=== PATIENT | male | born 1960 | race African-American/Black ===

== ENCOUNTER 2017-09-17 12:37 | Inpatient (IN) | payer OTHER ==
[2017-09-17 14:35] VITALS: BMI 19.3
--- NOTE | 2017-09-17 19:57 | HP ---
Admission [facility] Chief Complaint: I am here for rehab Allergies/Adverse Reactions: Allergies Allergy/AdvReac Type Severity Reaction Status Date / Time shellfish derived Allergy Severe Swelling Verified 09/17/17 16:56 History of Present Illness: 57 yo male with cocaine, heroin (paranasal) and nicotine dependence is here seeking detox. [facility] attends at [facility] [address] [place] [address] tel , currently on methadone 50 mg, last mediated yesterday. PMHX: scoliosis, OA, neuropathy, HTN ( on meds), DMII, anxiety, depression, bipolar and schizophrenia. Denies suicidal / homicidal ideation or suicide attempts.Longest period of sobriety 3.5 years. Reports has attended multiple rehabs before, last rehab [address] [facility]. Exam Limitations: No Limitations - Ebola screening Have you been sick,other than usual withdrawal symptoms: No - Review of Systems Constitutional: Chills, Loss of Appetite, Changes in sleep, Unintentional Wgt. Loss (19 lbs over the past 90 days) EENT: reports: No Symptoms Reported Respiratory: reports: No Symptoms reported Cardiac: reports: No Symptoms Reported GI: reports: Poor Appetite, Poor Fluid Intake : reports: No Symptoms Reported Musculoskeletal: reports: Joint Pain Integumentary: reports: No Symptoms Reported Neuro: reports: Other (diabetic neuropathy left leg) Endocrine: reports: Increased Thirst Hematology: reports: No Symptoms Reported Psychiatric: reports: Orientated x3, Depressed Other Systems: Reviewed and Negative Patient History - Patient Medical History Hx Anemia: No Hx Asthma: No Hx Chronic Obstructive Pulmonary Disease (COPD): No Hx Cancer: No Hx Congestive Heart Failure: No Hx Hypertension: Yes (Norvasc 5 mg QD ) Hx Hypercholesterolemia: No Hx Pacemaker: No HX Cerebrovascular Accident: No Hx Seizures: No Hx Dementia: No Hx Diabetes: Yes (DM II on metformin ) Hx Gastrointestinal Disorders: No Hx Liver Disease: No Hx Genitourinary Disorders: No Hx Sexually Transmitted Disorders: Yes (Gonorrhea ) Hx Renal Disease (ESRD): No Hx Thyroid Disease: No Hx Human Immunodeficiency Virus (HIV): No (last tested 2016) Hx Hepatitis C: No Hx Depression: Yes Hx Suicide Attempt: No Hx Bipolar Disorder: Yes Hx Schizophrenia: Yes - Patient Surgical History Past Surgical History: No Hx Neurologic Surgery: No Hx Cataract Extraction: No Hx Cardiac Surgery: No Hx Lung Surgery: No Hx Breast Surgery: No Hx Breast Biopsy: No Hx Abdominal Surgery: No Hx Appendectomy: No Hx Cholecystectomy: No Hx Genitourinary Surgery: No Hx Section: No Hx Orthopedic Surgery: No Hx Hysterectomy: No Anesthesia Reaction: No - PPD History Previous Implant?: No Documented Results: Negative w/o proof PPD to be Administered?: Yes - Reproductive History Patient is a Female of Child Bearing Age (11 -55 yrs old): No - Smoking Cessation Smoking history: Current every day smoker Have you smoked in the past 12 months: Yes Aproximately how many cigarettes per day: 8 Hx Chewing Tobacco Use: No Initiated information on smoking cessation: Yes 'Breaking Loose' booklet given: 09/17/17 - Substance & Tx. History Hx Alcohol Use: No Hx Substance Use: Yes Substance Use Type: Cocaine, Heroin Hx Substance Use Treatment: Yes (last rehab [address] [facility].) - Substances Abused heroin Route: Inhalation Frequency: Daily Amount used: 1 bag Age of first use: 16 Date of Last Use: 09/17/17 Cocaine Route: Inhalation Frequency: Daily Amount used: $10 Age of first use: 18 Date of Last Use: 09/16/17 Family Disease History - Family Disease History Family Disease History: Other: Father (, unknown ), Mother (, unknown ) Admission Physical Exam S - Vital Signs Vital Signs: Vital Signs - 24 hr 09/17/17 14:34 Temperature 97.2 F L Pulse Rate 93 H Respiratory 18 Rate Blood Pressure 141/88 - Physical General Appearance: Yes: Appropriately Dressed, Thin, Anxious HEENTM: Yes: EOMI, Hearing grossly Normal, Normal ENT Inspection, Normocephalic , Normal Voice, ILEANA, Pharynx Normal, Tm's normal Respiratory: Yes: Chest Non-Tender, Normal Breath Sounds, No Respiratory Distress, No Accessory Muscle Use Neck: Yes: No masses,lesions,Nodules, Trachea in good position Breast: Yes: Breast Exam Deferred Cardiology: Yes: Regular Rhythm, Regular Rate Genitourinary: Yes: Within Normal Limits Back: Yes: Normal Inspection Musculoskeletal: Yes: full range of Motion, Gait Steady, Back pain, Other ( ambulates with cane, scoliosis) Extremities: Yes: Normal Capillary Refill, Normal Inspection, Normal Range of Motion, Non-Tender Neurological: Yes: tugboat mate II-XII NML intact, Fully Oriented, Alert, Motor Strength 5/5, Depressed Affect Integumentary: Yes: Normal Color, Dry, Warm Lymphatic: Yes: Within Normal Limits - Diagnostic (1) Methadone maintenance therapy patient Current Visit: Yes Status: Acute Comment: on 50 mg dose pending verification (2) Hypertension Current Visit: Yes Status: Chronic Qualifiers: Hypertension type: essential hypertension Qualified Code(s): I10 - Essential (primary) hypertension (3) Cocaine dependence Current Visit: Yes Status: Acute Qualifiers: Substance use status: uncomplicated Qualified Code(s): F14.20 - Cocaine dependence, uncomplicated (4) Nicotine dependence Current Visit: Yes Status: Acute Qualifiers: Nicotine product type: cigarettes (5) Use of cane as ambulatory aid Current Visit: Yes Status: Chronic (6) Diabetes mellitus type II, non insulin dependent Current Visit: Yes Status: Chronic (7) Scoliosis Current Visit: Yes Status: Chronic Qualifiers: Scoliosis type: unspecified scoliosis Spinal region: unspecified Qualified Code(s): M41.9 - Scoliosis, unspecified (8) Back pain Current Visit: Yes Status: Chronic Qualifiers: Chronicity: chronic Back pain laterality: right Sciatica presence: without sciatica (9) Neuropathy Current Visit: Yes Status: Chronic (10) Weight loss Current Visit: Yes Status: Acute [facility] Breath Alcohol Content Breath Alcohol Content: 0 Urine Drug Screen - Results Drug Screen Negative: No Urine Drug Screen Results: JASON-Cocaine, OPI-Opiates, MTD-Methadone
[2017-09-17] MEDS ORDERED: ACETAMINOPHEN 325 MG TABLET (FP) PO PRN (20:04)
[2017-09-17] MEDS ORDERED: IBUPROFEN 400 MG TABLET (FP) PO PRN (20:04)
[2017-09-17] MEDS ORDERED: MAGNESIUM HYDROX 2400MG/30ML ORAL SUSPENSION 30 ML CUP PO PRN (20:04)
[2017-09-17] MEDS ORDERED: MAG HYDROX/AL HYDROX/SIMETH 30 ML UNIT-DOSE CUP PO PRN (20:04)
[2017-09-17] MEDS ORDERED: MAGNESIUM CITRATE 300 ML BOTTLE PO PRN (20:04)
[2017-09-17] MEDS ORDERED: LOPERAMIDE HCL 2 MG CAPSULE PO PRN (20:04)
[2017-09-17] MEDS ORDERED: guaiFENesin/D-METHORPHAN HB 10 ML UNIT-DOSE CUPS PO PRN (20:04)
[2017-09-17] MEDS ORDERED: P-EPHED 60MG/TRIPROLIDI 2.5MG TABLET PO PRN (20:04)
[2017-09-17] MEDS ORDERED: MENTHOL/PHENOL 1 EACH UD MM PRN (20:04)
[2017-09-17] MEDS ORDERED: NICOTINE POLACRILEX 2 MG GUM BUC PRN (20:07)
[2017-09-17] MEDS ORDERED: MELATONIN 5 MG TABLETS PO PRN (22:00)
[2017-09-17] MEDS: LIDOCAINE 5% TOPICAL PATCH TP SCH (22:01)
[2017-09-17] MEDS: THIAMINE HCL 100 MG TABLET (FP) PO SCH (23:02)
[2017-09-17] MEDS: metFORMIN HCL 500 MG TABLET (FP) PO SCH (23:02)
[2017-09-17] MEDS: LIDOCAINE PATCH REMOVAL MC SCH (23:02)
[2017-09-17] MEDS: CHOLECALCIFEROL (VITAMIN D3) 1,000 UNIT TABLET (FP) PO SCH (23:12)
[2017-09-17] MEDS ORDERED: TUBERCULIN PPD 5 TU/0.1ML VIAL ID ONE ×2 (23:17→23:19)
[2017-09-18] MEDS: metFORMIN HCL 500 MG TABLET (FP) PO SCH ×2 (06:23→17:35)
[2017-09-18] MEDS ORDERED: METHADONE HCL 40 MG DISPERSABLE TABLET PO SCH (09:45)
[2017-09-18] MEDS: LISINOPRIL 20 MG TABLET (FP) PO SCH (09:57)
[2017-09-18] MEDS: PRENATAL VITAMINS W/ FOLIC ACID TABLET (FP) PO SCH (09:57)
[2017-09-18] MEDS: ASPIRIN 81 MG CHEWABLE TABLETS PO SCH (09:57)
[2017-09-18] MEDS: amLODIPine BESYLATE 5 MG TABLET (FP) PO SCH (09:57)
[2017-09-18] MEDS: LIDOCAINE 5% TOPICAL PATCH TP SCH (09:57)
[2017-09-18] MEDS: CHOLECALCIFEROL (VITAMIN D3) 1,000 UNIT TABLET (FP) PO SCH (09:59)
[2017-09-18] MEDS: NICOTINE 14 MG/24 HOURS TOPICAL PATCH TD SCH (10:02)
[2017-09-18 10:28] LABS: HEMATOCRIT 35.1 % (35.4-49); HEMOGLOBIN 11.7 GM/dL (11.7-16.9); MCH 32.1 pg (25.7-33.7); MCHC 33.4 g/dl (32.0-35.9); MEAN CELL VOLUME 95.9 fl (80-96); MEAN PLT VOLUME 8.9 fl (7.5-11.1); PLATELET COUNT 224 K/MM3 (134-434); RBC 3.66 M/mm3 (4.00-5.60); RDW 15.2 % (11.9-15.9); WHITE BLOOD COUNT 6.3 K/mm3 (4.0-10.0)
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
[2017-09-18 11:35] LABS: ALBUMIN 3.6 g/dl (3.4-5.0); ANION GAP 6 (8-16); BLOOD UREA NITROGEN 11 mg/dL (7-18); CALCIUM 8.8 mg/dL (8.5-10.1); CHLORIDE 111 mmol/L (98-107); CO2 29 mmol/L (21-32); GLUCOSE,RANDOM 136 mg/dL (74-106); POTASSIUM 3.8 mmol/L (3.5-5.1); SGOT/AST 30 U/L (15-37); SGPT/ALT 22 U/L (12-78); SODIUM 146 mmol/L (136-145)
[2017-09-18 11:38] LABS: ALK PHOS 109 U/L (45-117); BILIRUBIN,TOTAL 0.5 mg/dL (0.2-1.0)
[2017-09-18] MEDS ORDERED: diphenhydrAMINE HCL 50 MG CAPSULE PO PRN (11:54)
--- NOTE | 2017-09-18 14:00 | EKG ---
Test Reason : Blood Pressure : / mmHG Vent. Rate : 066 BPM Atrial Rate : 066 BPM P-R Int : 150 ms QRS Dur : 090 ms QT Int : 440 ms P-R-T Axes : 068 057 032 degrees QTc Int : 461 ms NORMAL SINUS RHYTHM LOW VOLTAGE QRS T WAVE ABNORMALITY, CONSIDER ANTEROLATERAL ISCHEMIA PROLONGED QT ABNORMAL ECG WHEN COMPARED WITH ECG OF 17-SEP-2017 23:16, PREMATURE VENTRICULAR COMPLEXES ARE NO LONGER PRESENT Confirmed by HAMMAD HULL MD ([id number]) on 09/18/2017 1:59:31 PM Referred By: Confirmed By:HAMMAD HULL MD
--- NOTE | 2017-09-18 16:18 | PN ---
[facility] Progress Note Note: PATIENT LAB REPORT AND EKG REVIEWED. PATIENT ALSO SEEN FOR COMPLAINTS OF TIREDNESS AND SEDATION. REQUESTING REDUCTION OF METHADONE DOSE. Vital Signs Temperature 98.5 F 09/18/17 06:32 Pulse Rate 84 09/18/17 10:00 Respiratory Rate 16 09/18/17 06:32 Blood Pressure 145/97 09/18/17 10:00 O2 Sat by Pulse Oximetry (%) Laboratory Tests 09/17/17 09/18/17 09/18/17 23:05 06:00 06:00 WBC 6.3 RBC 3.66 L Hgb 11.7 Hct 35.1 L MCV 95.9 MCH 32.1 MCHC 33.4 RDW 15.2 Plt Count 224 MPV 8.9 Sodium 146 H Potassium 3.8 Chloride 111 H Carbon Dioxide 29 Anion Gap 6 L BUN 11 Creatinine 1.0 Creat Clearance w eGFR > 60 POC Glucometer 158 Random Glucose 136 H Calcium 8.8 Total Bilirubin 0.5 AST 30 ALT 22 Alkaline Phosphatase 109 Total Protein 7.0 Albumin 3.6 RPR Titer 09/18/17 09/18/17 06:00 06:22 WBC RBC Hgb Hct MCV MCH MCHC RDW Plt Count MPV Sodium Potassium Chloride Carbon Dioxide Anion Gap BUN Creatinine Creat Clearance w eGFR POC Glucometer 100 Random Glucose Calcium Total Bilirubin AST ALT Alkaline Phosphatase Total Protein Albumin RPR Titer Nonreactive SUBJ: PATIENT DENIES CP,SOB AND DIZZINESS. REPORTS DIFFICULTY STAYING AWAKE. OBJ: GENERAL: ALERT AND ORIENTED X 3. SKIN: WARM AND DRY CAR: S1S2 RESP: CTA BL A/P ELEVATED SODIUM LEVEL OF 146 SEDATION EKG ABNORMAL,PROLONGED QTC WATER PITCHER AT BEDSIDE MAY USE OWN CANE REPEAT BMP ON 09/20/17 REPEAT EKG IN AM DECREASE METHADONE TO 70MG DAILY STARTING IN AM CONTINUE TO MONITOR CLINICALLY
[2017-09-18] MEDS: THIAMINE HCL 100 MG TABLET (FP) PO SCH (21:08)
[2017-09-18] MEDS: LIDOCAINE PATCH REMOVAL MC SCH (21:09)
[2017-09-19] MEDS: METHADONE HCL 10 MG TABLET PO SCH (06:23)
[2017-09-19] MEDS: metFORMIN HCL 500 MG TABLET (FP) PO SCH ×2 (06:29→16:50)
[2017-09-19] MEDS: ASPIRIN 81 MG CHEWABLE TABLETS PO SCH (09:59)
[2017-09-19] MEDS: PRENATAL VITAMINS W/ FOLIC ACID TABLET (FP) PO SCH (09:59)
[2017-09-19] MEDS: NICOTINE 14 MG/24 HOURS TOPICAL PATCH TD SCH (09:59)
[2017-09-19] MEDS: SERTRALINE HCL 50 MG TABLET (FP) PO SCH (09:59)
[2017-09-19] MEDS: LISINOPRIL 20 MG TABLET (FP) PO SCH (09:59)
[2017-09-19] MEDS: amLODIPine BESYLATE 5 MG TABLET (FP) PO SCH (09:59)
[2017-09-19] MEDS: LIDOCAINE 5% TOPICAL PATCH TP SCH (10:01)
[2017-09-19] MEDS: CHOLECALCIFEROL (VITAMIN D3) 1,000 UNIT TABLET (FP) PO SCH (11:00)
--- NOTE | 2017-09-19 16:12 | EKG ---
Test Reason : Blood Pressure : / mmHG Vent. Rate : 074 BPM Atrial Rate : 074 BPM P-R Int : 152 ms QRS Dur : 086 ms QT Int : 384 ms P-R-T Axes : 064 050 059 degrees QTc Int : 426 ms NORMAL SINUS RHYTHM LOW VOLTAGE QRS NONSPECIFIC T WAVE ABNORMALITY ABNORMAL ECG WHEN COMPARED WITH ECG OF 17-SEP-2017 23:17, T WAVE INVERSION LESS EVIDENT IN ANTERIOR LEADS Confirmed by MIRZA ZAMORA, REGAN ([id number]) on 09/19/2017 4:12:21 PM Referred By: Osbaldo RED Confirmed By:REGAN BLUE MD
[2017-09-19] MEDS: LIDOCAINE PATCH REMOVAL MC SCH (21:17)
[2017-09-19] MEDS: THIAMINE HCL 100 MG TABLET (FP) PO SCH (21:17)
[2017-09-20] MEDS: METHADONE HCL 10 MG TABLET PO SCH (05:51)
[2017-09-20] MEDS: metFORMIN HCL 500 MG TABLET (FP) PO SCH ×2 (07:27→16:35)
[2017-09-20] MEDS: amLODIPine BESYLATE 5 MG TABLET (FP) PO SCH (09:54)
[2017-09-20] MEDS: ASPIRIN 81 MG CHEWABLE TABLETS PO SCH (09:54)
[2017-09-20] MEDS: NICOTINE 14 MG/24 HOURS TOPICAL PATCH TD SCH (09:54)
[2017-09-20] MEDS: CHOLECALCIFEROL (VITAMIN D3) 1,000 UNIT TABLET (FP) PO SCH (09:54)
[2017-09-20] MEDS: PRENATAL VITAMINS W/ FOLIC ACID TABLET (FP) PO SCH (09:54)
[2017-09-20] MEDS: LISINOPRIL 20 MG TABLET (FP) PO SCH (09:54)
[2017-09-20] MEDS: SERTRALINE HCL 50 MG TABLET (FP) PO SCH (09:54)
[2017-09-20] MEDS: LIDOCAINE 5% TOPICAL PATCH TP SCH (09:55)
[2017-09-20 10:26] LABS: CHLORIDE 105 mmol/L (98-107); POTASSIUM 4.3 mmol/L (3.5-5.1); SODIUM 142 mmol/L (136-145)
[2017-09-20 10:33] LABS: ANION GAP 9 (8-16); BLOOD UREA NITROGEN 11 mg/dL (7-18); CALCIUM 9.4 mg/dL (8.5-10.1); CO2 28 mmol/L (21-32); CREATININE 0.7 mg/dL (0.7-1.3); GLUCOSE,RANDOM 91 mg/dL (74-106)
[2017-09-20] MEDS: LIDOCAINE PATCH REMOVAL MC SCH (21:14)
[2017-09-20] MEDS: THIAMINE HCL 100 MG TABLET (FP) PO SCH (21:14)
[2017-09-21] MEDS ORDERED: METHADONE HCL 10 MG TABLET ONE (04:34)
[2017-09-21] MEDS ORDERED: METHADONE HCL 40 MG DISPERSABLE TABLET ONE (04:35)
[2017-09-21] MEDS: METHADONE 40 MG, METHADONE 30 MG PO SCH (06:56)
[2017-09-21] MEDS: metFORMIN HCL 500 MG TABLET (FP) PO SCH ×2 (07:01→16:40)
[2017-09-21] MEDS: LISINOPRIL 20 MG TABLET (FP) PO SCH (09:39)
[2017-09-21] MEDS: PRENATAL VITAMINS W/ FOLIC ACID TABLET (FP) PO SCH (09:39)
[2017-09-21] MEDS: NICOTINE 14 MG/24 HOURS TOPICAL PATCH TD SCH (09:39)
[2017-09-21] MEDS: SERTRALINE HCL 50 MG TABLET (FP) PO SCH (09:39)
[2017-09-21] MEDS: amLODIPine BESYLATE 5 MG TABLET (FP) PO SCH (09:39)
[2017-09-21] MEDS: ASPIRIN 81 MG CHEWABLE TABLETS PO SCH (09:39)
[2017-09-21] MEDS: CHOLECALCIFEROL (VITAMIN D3) 1,000 UNIT TABLET (FP) PO SCH (09:40)
[2017-09-21] MEDS: LIDOCAINE 5% TOPICAL PATCH TP SCH (09:41)
[2017-09-21 16:55] LABS: URINE APPEARANCE CLEAR; URINE BILIRUBIN NEGATIVE (<2.0 mg/dL); URINE COLOR YELLOW; URINE GLUCOSE (UA) NEGATIVE (NEGATIVE); URINE KETONE NEGATIVE (NEGATIVE); URINE LEUK ESTERASE NEGATIVE (NEGATIVE); URINE NITRITE NEGATIVE (NEGATIVE); URINE PROTEIN NEGATIVE (NEGATIVE); URINE UROBILINOGEN NEGATIVE mg/dL (0.2-1.0)
[2017-09-21] MEDS: LIDOCAINE PATCH REMOVAL MC SCH (21:09)
[2017-09-21] MEDS: THIAMINE HCL 100 MG TABLET (FP) PO SCH (21:09)
[2017-09-22] MEDS ORDERED: METHADONE HCL 10 MG TABLET ONE (03:03)
[2017-09-22] MEDS ORDERED: METHADONE HCL 40 MG DISPERSABLE TABLET ONE (03:03)
[2017-09-22] MEDS: METHADONE 40 MG, METHADONE 30 MG PO SCH (06:48)
[2017-09-22] MEDS: metFORMIN HCL 500 MG TABLET (FP) PO SCH ×2 (06:51→16:43)
[2017-09-22] MEDS: LISINOPRIL 20 MG TABLET (FP) PO SCH (09:35)
[2017-09-22] MEDS: amLODIPine BESYLATE 5 MG TABLET (FP) PO SCH (09:35)
[2017-09-22] MEDS: ASPIRIN 81 MG CHEWABLE TABLETS PO SCH (09:35)
[2017-09-22] MEDS: PRENATAL VITAMINS W/ FOLIC ACID TABLET (FP) PO SCH (09:35)
[2017-09-22] MEDS: CHOLECALCIFEROL (VITAMIN D3) 1,000 UNIT TABLET (FP) PO SCH (09:35)
[2017-09-22] MEDS: SERTRALINE HCL 50 MG TABLET (FP) PO SCH (09:35)
[2017-09-22] MEDS: NICOTINE 14 MG/24 HOURS TOPICAL PATCH TD SCH (09:36)
[2017-09-22] MEDS: LIDOCAINE 5% TOPICAL PATCH TP SCH (09:37)
[2017-09-22] MEDS: THIAMINE HCL 100 MG TABLET (FP) PO SCH (21:12)
[2017-09-22] MEDS: LIDOCAINE PATCH REMOVAL MC SCH (21:55)
[2017-09-23] MEDS ORDERED: METHADONE HCL 40 MG DISPERSABLE TABLET ONE (02:33)
[2017-09-23] MEDS ORDERED: METHADONE HCL 10 MG TABLET ONE (02:33)
[2017-09-23] MEDS: METHADONE 40 MG, METHADONE 30 MG PO SCH (06:20)
[2017-09-23] MEDS: metFORMIN HCL 500 MG TABLET (FP) PO SCH ×2 (06:24→16:51)
[2017-09-23] MEDS: LISINOPRIL 20 MG TABLET (FP) PO SCH (10:11)
[2017-09-23] MEDS: PRENATAL VITAMINS W/ FOLIC ACID TABLET (FP) PO SCH (10:11)
[2017-09-23] MEDS: SERTRALINE HCL 50 MG TABLET (FP) PO SCH (10:11)
[2017-09-23] MEDS: ASPIRIN 81 MG CHEWABLE TABLETS PO SCH (10:11)
[2017-09-23] MEDS: amLODIPine BESYLATE 5 MG TABLET (FP) PO SCH (10:11)
[2017-09-23] MEDS: LIDOCAINE 5% TOPICAL PATCH TP SCH (10:12)
[2017-09-23] MEDS: NICOTINE 14 MG/24 HOURS TOPICAL PATCH TD SCH (10:12)
[2017-09-23] MEDS: CHOLECALCIFEROL (VITAMIN D3) 1,000 UNIT TABLET (FP) PO SCH (10:12)
--- NOTE | 2017-09-23 14:59 | PN ---
[facility] Progress Note Note: Patient c/o dryness of skin to face. Denies itching and/or allergies. Will order Eucerin cream and continue to monitor.
[2017-09-23] MEDS: MINERAL OIL/PETROLAT/WATER TOPICAL CREAM 113 GM JAR TP SCH (21:11)
[2017-09-23] MEDS: LIDOCAINE PATCH REMOVAL MC SCH (21:13)
[2017-09-23] MEDS: THIAMINE HCL 100 MG TABLET (FP) PO SCH (23:38)
[2017-09-24] MEDS ORDERED: METHADONE HCL 10 MG TABLET ONE (05:53)
[2017-09-24] MEDS ORDERED: METHADONE HCL 40 MG DISPERSABLE TABLET ONE (05:53)
[2017-09-24] MEDS: METHADONE 40 MG, METHADONE 30 MG PO SCH (06:05)
[2017-09-24] MEDS: metFORMIN HCL 500 MG TABLET (FP) PO SCH ×2 (06:06→17:01)
[2017-09-24] MEDS: amLODIPine BESYLATE 5 MG TABLET (FP) PO SCH (09:49)
[2017-09-24] MEDS: ASPIRIN 81 MG CHEWABLE TABLETS PO SCH (09:49)
[2017-09-24] MEDS: PRENATAL VITAMINS W/ FOLIC ACID TABLET (FP) PO SCH (09:49)
[2017-09-24] MEDS: SERTRALINE HCL 50 MG TABLET (FP) PO SCH (09:49)
[2017-09-24] MEDS: CHOLECALCIFEROL (VITAMIN D3) 1,000 UNIT TABLET (FP) PO SCH (09:49)
[2017-09-24] MEDS: LISINOPRIL 20 MG TABLET (FP) PO SCH (09:50)
[2017-09-24] MEDS: MINERAL OIL/PETROLAT/WATER TOPICAL CREAM 113 GM JAR TP SCH ×2 (09:51→21:10)
[2017-09-24] MEDS: NICOTINE 14 MG/24 HOURS TOPICAL PATCH TD SCH (09:52)
[2017-09-24] MEDS: LIDOCAINE 5% TOPICAL PATCH TP SCH ×3 (09:52→14:15)
--- NOTE | 2017-09-24 12:47 | PN ---
[facility] Progress Note Note: c/o muscular shoulder pain request lidocaine patch to relive pain. Vital Signs Temperature 99.0 F 09/24/17 06:30 Pulse Rate 84 09/24/17 10:00 Respiratory Rate 16 09/24/17 06:30 Blood Pressure 112/56 09/24/17 10:00 O2 Sat by Pulse Oximetry (%) apply lidocaine patch qd PRN Continue to monitor
[2017-09-24] MEDS: THIAMINE HCL 100 MG TABLET (FP) PO SCH (21:10)
[2017-09-24] MEDS: LIDOCAINE PATCH REMOVAL MC SCH ×2 (21:10)
[2017-09-25] MEDS ORDERED: METHADONE HCL 10 MG TABLET ONE (04:29)
[2017-09-25] MEDS ORDERED: METHADONE HCL 40 MG DISPERSABLE TABLET ONE (04:29)
[2017-09-25] MEDS: METHADONE 40 MG, METHADONE 30 MG PO SCH (06:06)
[2017-09-25] MEDS: metFORMIN HCL 500 MG TABLET (FP) PO SCH ×2 (06:06→16:43)
[2017-09-25] MEDS: CHOLECALCIFEROL (VITAMIN D3) 1,000 UNIT TABLET (FP) PO SCH (09:46)
[2017-09-25] MEDS: SERTRALINE HCL 50 MG TABLET (FP) PO SCH (09:46)
[2017-09-25] MEDS: PRENATAL VITAMINS W/ FOLIC ACID TABLET (FP) PO SCH (09:46)
[2017-09-25] MEDS: ASPIRIN 81 MG CHEWABLE TABLETS PO SCH (09:46)
[2017-09-25] MEDS: amLODIPine BESYLATE 5 MG TABLET (FP) PO SCH (09:46)
[2017-09-25] MEDS: LISINOPRIL 20 MG TABLET (FP) PO SCH (09:46)
[2017-09-25] MEDS: MINERAL OIL/PETROLAT/WATER TOPICAL CREAM 113 GM JAR TP SCH ×2 (09:46→21:46)
[2017-09-25] MEDS: NICOTINE 14 MG/24 HOURS TOPICAL PATCH TD SCH (09:47)
[2017-09-25] MEDS: LIDOCAINE 5% TOPICAL PATCH TP SCH ×2 (09:47)
[2017-09-25] MEDS: LIDOCAINE PATCH REMOVAL MC SCH ×2 (21:14)
[2017-09-25] MEDS: THIAMINE HCL 100 MG TABLET (FP) PO SCH (21:14)
[2017-09-26] MEDS ORDERED: METHADONE HCL 40 MG DISPERSABLE TABLET ONE (05:32)
[2017-09-26] MEDS ORDERED: METHADONE HCL 10 MG TABLET ONE (05:32)
[2017-09-26] MEDS: METHADONE 40 MG, METHADONE 30 MG PO SCH (06:10)
[2017-09-26] MEDS: metFORMIN HCL 500 MG TABLET (FP) PO SCH ×2 (06:10→16:47)
[2017-09-26] MEDS: NICOTINE 14 MG/24 HOURS TOPICAL PATCH TD SCH (10:00)
[2017-09-26] MEDS: ASPIRIN 81 MG CHEWABLE TABLETS PO SCH (10:00)
[2017-09-26] MEDS: CHOLECALCIFEROL (VITAMIN D3) 1,000 UNIT TABLET (FP) PO SCH (10:00)
[2017-09-26] MEDS: LISINOPRIL 20 MG TABLET (FP) PO SCH (10:00)
[2017-09-26] MEDS: LIDOCAINE 5% TOPICAL PATCH TP SCH ×2 (10:00)
[2017-09-26] MEDS: SERTRALINE HCL 50 MG TABLET (FP) PO SCH (10:00)
[2017-09-26] MEDS: amLODIPine BESYLATE 5 MG TABLET (FP) PO SCH (10:00)
[2017-09-26] MEDS: PRENATAL VITAMINS W/ FOLIC ACID TABLET (FP) PO SCH (10:00)
[2017-09-26] MEDS: MINERAL OIL/PETROLAT/WATER TOPICAL CREAM 113 GM JAR TP SCH ×2 (10:02→21:10)
[2017-09-26] MEDS: LIDOCAINE PATCH REMOVAL MC SCH ×2 (21:10)
[2017-09-26] MEDS: THIAMINE HCL 100 MG TABLET (FP) PO SCH (21:10)
[2017-09-27] MEDS ORDERED: METHADONE HCL 10 MG TABLET ONE (04:12)
[2017-09-27] MEDS ORDERED: METHADONE HCL 40 MG DISPERSABLE TABLET ONE (04:13)
[2017-09-27] MEDS: METHADONE 40 MG, METHADONE 30 MG PO SCH (06:20)
[2017-09-27] MEDS: metFORMIN HCL 500 MG TABLET (FP) PO SCH ×2 (06:21→16:41)
[2017-09-27] MEDS: ASPIRIN 81 MG CHEWABLE TABLETS PO SCH (10:04)
[2017-09-27] MEDS: SERTRALINE HCL 50 MG TABLET (FP) PO SCH (10:04)
[2017-09-27] MEDS: PRENATAL VITAMINS W/ FOLIC ACID TABLET (FP) PO SCH (10:04)
[2017-09-27] MEDS: CHOLECALCIFEROL (VITAMIN D3) 1,000 UNIT TABLET (FP) PO SCH (10:04)
[2017-09-27] MEDS: MINERAL OIL/PETROLAT/WATER TOPICAL CREAM 113 GM JAR TP SCH ×2 (10:05→21:14)
[2017-09-27] MEDS: NICOTINE 14 MG/24 HOURS TOPICAL PATCH TD SCH (10:05)
[2017-09-27] MEDS: LIDOCAINE 5% TOPICAL PATCH TP SCH ×2 (10:05)
[2017-09-27] MEDS: amLODIPine BESYLATE 5 MG TABLET (FP) PO SCH (11:00)
[2017-09-27] MEDS: LISINOPRIL 20 MG TABLET (FP) PO SCH (11:00)
[2017-09-27] MEDS: THIAMINE HCL 100 MG TABLET (FP) PO SCH (21:14)
[2017-09-27] MEDS: LIDOCAINE PATCH REMOVAL MC SCH ×2 (21:14)
[2017-09-28] MEDS ORDERED: METHADONE HCL 10 MG TABLET ONE (05:05)
[2017-09-28] MEDS ORDERED: METHADONE HCL 40 MG DISPERSABLE TABLET ONE (05:05)
[2017-09-28] MEDS: metFORMIN HCL 500 MG TABLET (FP) PO SCH ×2 (06:01→16:50)
[2017-09-28] MEDS: METHADONE 40 MG, METHADONE 30 MG PO SCH (06:01)
[2017-09-28] MEDS: LIDOCAINE 5% TOPICAL PATCH TP SCH ×2 (09:44)
[2017-09-28] MEDS: PRENATAL VITAMINS W/ FOLIC ACID TABLET (FP) PO SCH (09:44)
[2017-09-28] MEDS: ASPIRIN 81 MG CHEWABLE TABLETS PO SCH (09:44)
[2017-09-28] MEDS: LISINOPRIL 20 MG TABLET (FP) PO SCH (09:44)
[2017-09-28] MEDS: CHOLECALCIFEROL (VITAMIN D3) 1,000 UNIT TABLET (FP) PO SCH (09:44)
[2017-09-28] MEDS: SERTRALINE HCL 50 MG TABLET (FP) PO SCH (09:44)
[2017-09-28] MEDS: amLODIPine BESYLATE 5 MG TABLET (FP) PO SCH (09:44)
[2017-09-28] MEDS: NICOTINE 14 MG/24 HOURS TOPICAL PATCH TD SCH (09:46)
[2017-09-28] MEDS: MINERAL OIL/PETROLAT/WATER TOPICAL CREAM 113 GM JAR TP SCH ×2 (09:46→21:13)
[2017-09-28] MEDS: THIAMINE HCL 100 MG TABLET (FP) PO SCH (21:12)
[2017-09-28] MEDS: LIDOCAINE PATCH REMOVAL MC SCH ×2 (21:13)
[2017-09-29] MEDS ORDERED: METHADONE HCL 10 MG TABLET ONE (02:22)
[2017-09-29] MEDS ORDERED: METHADONE HCL 40 MG DISPERSABLE TABLET ONE (02:23)
[2017-09-29] MEDS: metFORMIN HCL 500 MG TABLET (FP) PO SCH ×2 (06:04→16:55)
[2017-09-29] MEDS: METHADONE 40 MG, METHADONE 30 MG PO SCH (06:05)
[2017-09-29] MEDS: PRENATAL VITAMINS W/ FOLIC ACID TABLET (FP) PO SCH (09:34)
[2017-09-29] MEDS: CHOLECALCIFEROL (VITAMIN D3) 1,000 UNIT TABLET (FP) PO SCH (09:34)
[2017-09-29] MEDS: SERTRALINE HCL 50 MG TABLET (FP) PO SCH (09:34)
[2017-09-29] MEDS: ASPIRIN 81 MG CHEWABLE TABLETS PO SCH (09:34)
[2017-09-29] MEDS: amLODIPine BESYLATE 5 MG TABLET (FP) PO SCH (09:35)
[2017-09-29] MEDS: LISINOPRIL 20 MG TABLET (FP) PO SCH (09:35)
[2017-09-29] MEDS: NICOTINE 14 MG/24 HOURS TOPICAL PATCH TD SCH (09:35)
[2017-09-29] MEDS: LIDOCAINE 5% TOPICAL PATCH TP SCH ×2 (09:35)
[2017-09-29] MEDS: MINERAL OIL/PETROLAT/WATER TOPICAL CREAM 113 GM JAR TP SCH ×2 (09:35→21:10)
[2017-09-29] MEDS: THIAMINE HCL 100 MG TABLET (FP) PO SCH (21:09)
[2017-09-29] MEDS: LIDOCAINE PATCH REMOVAL MC SCH (21:10)
[2017-09-30] MEDS ORDERED: METHADONE HCL 40 MG DISPERSABLE TABLET ONE (04:04)
[2017-09-30] MEDS ORDERED: METHADONE HCL 10 MG TABLET ONE (04:04)
[2017-09-30] MEDS: METHADONE 40 MG, METHADONE 30 MG PO SCH (05:50)
[2017-09-30] MEDS: metFORMIN HCL 500 MG TABLET (FP) PO SCH ×2 (06:38→16:36)
[2017-09-30] MEDS: amLODIPine BESYLATE 5 MG TABLET (FP) PO SCH (09:43)
[2017-09-30] MEDS: SERTRALINE HCL 50 MG TABLET (FP) PO SCH (09:43)
[2017-09-30] MEDS: ASPIRIN 81 MG CHEWABLE TABLETS PO SCH (09:43)
[2017-09-30] MEDS: CHOLECALCIFEROL (VITAMIN D3) 1,000 UNIT TABLET (FP) PO SCH (09:43)
[2017-09-30] MEDS: LISINOPRIL 20 MG TABLET (FP) PO SCH (09:43)
[2017-09-30] MEDS: PRENATAL VITAMINS W/ FOLIC ACID TABLET (FP) PO SCH (09:44)
[2017-09-30] MEDS: MINERAL OIL/PETROLAT/WATER TOPICAL CREAM 113 GM JAR TP SCH ×2 (09:44→21:10)
[2017-09-30] MEDS: NICOTINE 14 MG/24 HOURS TOPICAL PATCH TD SCH (09:45)
[2017-09-30] MEDS: LIDOCAINE 5% TOPICAL PATCH TP SCH ×2 (09:45→09:46)
[2017-09-30] MEDS: THIAMINE HCL 100 MG TABLET (FP) PO SCH (21:10)
[2017-09-30] MEDS: LIDOCAINE PATCH REMOVAL MC SCH (21:11)
[2017-10-01] MEDS ORDERED: METHADONE HCL 10 MG TABLET ONE (03:05)
[2017-10-01] MEDS ORDERED: METHADONE HCL 40 MG DISPERSABLE TABLET ONE (03:06)
[2017-10-01] MEDS: METHADONE 40 MG, METHADONE 30 MG PO SCH (06:13)
[2017-10-01 06:41] VITALS: BP 143/78; PULSE 95; TEMP 98.7
[2017-10-01] MEDS: metFORMIN HCL 500 MG TABLET (FP) PO SCH (07:43)
[2017-10-01] MEDS: MINERAL OIL/PETROLAT/WATER TOPICAL CREAM 113 GM JAR TP SCH (09:47)
[2017-10-01] MEDS: PRENATAL VITAMINS W/ FOLIC ACID TABLET (FP) PO SCH (09:47)
[2017-10-01] MEDS: ASPIRIN 81 MG CHEWABLE TABLETS PO SCH (09:47)
[2017-10-01] MEDS: amLODIPine BESYLATE 5 MG TABLET (FP) PO SCH (09:47)
[2017-10-01] MEDS: LISINOPRIL 20 MG TABLET (FP) PO SCH (09:47)
[2017-10-01] MEDS: CHOLECALCIFEROL (VITAMIN D3) 1,000 UNIT TABLET (FP) PO SCH (09:47)
[2017-10-01] MEDS: SERTRALINE HCL 50 MG TABLET (FP) PO SCH (09:48)
[2017-10-01] MEDS: NICOTINE 14 MG/24 HOURS TOPICAL PATCH TD SCH (09:48)
[2017-10-01] MEDS: LIDOCAINE 5% TOPICAL PATCH TP SCH ×2 (09:48)
--- NOTE | 2017-10-01 10:51 | PN ---
Psychiatric Progress Note Vital Signs: Vital Signs Period Temp Pulse Resp BP Sys/Cuello Pulse Ox Last 24 Hr 98.7 F 95 18-18 143/78 Date of Session: 10/01/17 Chief Complaint:: discharge visit HPI: Patient has addressed cocaine, opioid, nicotine dependence comorbid PTSD, Anxiety disorder. ROS: HTN, Diabetes,scoliosis, peripheral neuropathy, chronic arthritis medically managed. Current Side Effect: No Lab tests ordered: No Lab tests reviewed: Yes Provider note:: Patient has completed today his treatment and met his goals, will continue to address his issues at [facility] outpatient treatment program. Patient gained insights into importance of changing attitudes for the utilization of supports available to prevent relapses. Patient reports a good response to Zoloft, medication well tolerated, scripts provided for 30 days, stable for discharge today. Total face to face time:: 25 Mental Status Exam - Mental Status Exam Alert and Oriented to: Time, Place, Person Cognitive Function: Good Patient Appearance: Well Groomed Mood: Hopeful Affect: Appropriate, Mood Congruent Patient Behavior: Appropriate, Cooperative Speech Pattern: Clear, Appropriate Voice Loudness: Normal Thought Process: Intact, Goal Oriented Thought Disorder: Not Present Hallucinations: Denies Suicidal Ideation: Denies Homicidal Ideation: Denies Insight/Judgement: Fair Sleep: Fair Appetite: Good Muscle strength/Tone: Normal Gait/Station: Other Psychiatric Treatment Plan - Problem List (4) Cocaine dependence Qualifiers: Substance use status: uncomplicated Qualified Code(s): F14.20 - Cocaine dependence, uncomplicated (5) Methadone maintenance therapy patient Comment: on 50 mg dose pending verification (6) Nicotine dependence Qualifiers: Nicotine product type: cigarettes (8) Back pain Qualifiers: Chronicity: chronic Back pain laterality: right Sciatica presence: without sciatica (11) Scoliosis Qualifiers: Scoliosis type: unspecified scoliosis Spinal region: unspecified Qualified Code(s): M41.9 - Scoliosis, unspecified
== END 2017-10-01 10:15 | disposition home or self-care (01) | DRG 772 ==
LOC: YASAS 12:37 → Y5N 18:00
PROVIDERS: ADMIT Psychiatry & Neurology Psychiatry; ATTEND Psychiatry & Neurology Psychiatry
PROC: HZ42ZZZ Group Counseling for Substance Abuse Treatment, Cognitive-Behavioral (ICD-10-PCS; principal; 2017-09-17)
DX: F11.20 Opioid dependence, uncomplicated (principal); F14.20 Cocaine dependence, uncomplicated; F17.210 Nicotine dependence, cigarettes, uncomplicated; F43.10 Post-traumatic stress disorder, unspecified; F41.9 Anxiety disorder, unspecified; E87.0 Hyperosmolality and hypernatremia; E11.9 Type 2 diabetes mellitus without complications; Z79.84 Long term (current) use of oral hypoglycemic drugs; I10 Essential (primary) hypertension; G62.9 Polyneuropathy, unspecified; M54.5 Low back pain; M41.9 Scoliosis, unspecified; M12.9 Arthropathy, unspecified; L85.3 Xerosis cutis; R63.4 Abnormal weight loss; Z68.1 Body mass index [BMI] 19.9 or less, adult; Z86.19 Personal history of other infectious and parasitic diseases
CPT/HCPCS: 36415; 80048; 80053; 81003; 82962; 85027; 86593; 93005; 93010